=== PATIENT | female | born 1960 | race Two or more races ===

== ENCOUNTER → 2024-07-02 | Outpatient (CLI) | payer MEDICAID, SELFPAY ==
--- NOTE | 2024-07-02 13:58 | XR_ITS ---
Examination: Bilateral hands, 6 views. Technique: AP, Oblique, Lateral each hand total 6 views Date and time of exam: July 02, 2024 1446 hours INDICATIONS: Bilateral hand pain beginning 6 months ago. 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
--- NOTE | 2024-07-02 13:58 | XR_ITS ---
Examination: Cervical spine 3 views Technique one AP lateral coned AP odontoid cervical spine 3 views Exam date and time: July 02, 2024 1501 hours INDICATIONS: Neck pain 6 months. FINDINGS: Cervical levoscoliosis 12 degrees No cervical fracture. Intact odontoid Advanced degenerative disc disease C5-C6, C6-C7 IMPRESSION: Advanced degenerative disc disease C5-C6, C6-C7
--- NOTE | 2024-07-02 13:58 | XR_ITS ---
Examination: Bilateral hips, AP pelvis, 5 views Technique: AP, lateral views both hips, AP pelvis, 5 views Exam date and time: July 02, 2024 1456 hours INDICATIONS: Bilateral rib pain beginning 6 months ago worse the last month. FINDINGS: No hip or pelvic fracture No hip dislocations Minimal bilateral hip osteoarthritis IMPRESSION: Minimal bilateral hip osteoarthritis
--- NOTE | 2024-07-02 13:58 | XR_ITS ---
Examination: Lumbar spine 3 views Technique one AP lateral coned lateral lower lumbar spine 3 views Exam date and time: August 02, 2024 1523 hours INDICATIONS: Lower back pain beginning 6 months ago FINDINGS: Moderate osteopenia Lumbar levoscoliosis 15 degrees No lumbar fracture Diffuse lumbar disc narrowing, advanced L5-S1 No spondylolisthesis IMPRESSION: Diffuse lumbar degenerative disc disease, advanced L5-S1
--- NOTE | 2024-07-02 13:58 | XR_ITS ---
Examination: Foot bilateral, 6 views Technique: AP, oblique, lateral views each foot total 6 views Date and time of exam: July 02, 2024 1446 hours INDICATIONS: Bilateral foot pain beginning 6 months ago. FINDINGS: Moderate osteopenia Bilateral mild to moderate osteoarthritis first metatarsophalangeal joints Bilateral 3 to 4 mm plantar posterior bony calcaneal spurs No fracture or dislocation involving either foot IMPRESSION: Bilateral mild to moderate osteoarthritis first metatarsophalangeal joints Bilateral small plantar posterior bony calcaneal spur
== END | disposition home or self-care (01) ==
LOC: CDIM 13:49
PROVIDERS: PCP Nurse Practitioner Family; Referring Provider Nurse Practitioner Family; Visit Provider Nurse Practitioner Family
DX: M50.322 Other cervical disc degeneration at C5-C6 level (principal); M19.072 Primary osteoarthritis, left ankle and foot; M19.071 Primary osteoarthritis, right ankle and foot; M77.32 Calcaneal spur, left foot; M77.31 Calcaneal spur, right foot; M16.0 Bilateral primary osteoarthritis of hip; M19.042 Primary osteoarthritis, left hand; M19.041 Primary osteoarthritis, right hand; M51.379 Other intervertebral disc degeneration, lumbosacral region without mention of lumbar back pain or lower extremity pain
CPT/HCPCS: 72040; 72100; 73130; 73523; 73630

== ENCOUNTER 2024-09-06 20:30 | Emergency (ER) | payer MEDICAID, SELFPAY ==
[2024-09-06 20:31] VITALS: BMI 31.2
[2024-09-06 21:52] VITALS: BP 164/75; PULSE 71; RESP 18; TEMP 36.8; O2SAT 95
--- NOTE | 2024-09-06 22:19 | XR_ITS ---
Examination: PA lateral chest 2 views FINDINGS: Upright PA and lateral chest 2 views Standing time: September 06, 2024 dictated the INDICATIONS: Cough and shortness of breath beginning a days ago. FINDINGS: Normal heart size. No pneumonia or pulmonary edema Moderate thoracic spondylosis IMPRESSION: No pneumonia or pulmonary edema
[2024-09-06 23:30] VITALS: BP 153/87; PULSE 64; RESP 15; TEMP 36.8; O2SAT 95
[2024-09-06] MEDS: AMOXICILLIN/POT CLAV 875 TABLET 1 TAB PO (23:45)
[2024-09-06] MEDS: DEXAMETHASONE SOD PHOS INJ 10 MG/ML VIAL PO (23:45)
--- NOTE | 2024-09-07 03:07 | PD.EDURI ---
Upper Respiratory Inf. RME/HPI General Chief Complaint: Flu Like Symptoms Stated Complaint: FEVER, COUGH X 1 WEEK Time Seen by Provider: 09/06/24 22:18 Arrival date/time: 09/06/24 20:30 64F with history of HTN presents to ED with 2 weeks of cough and nasal congestion. Patient denies CP and SOB. Limitations: no limitations Related Data Previous Rx's ?Medication ?Instructions ?Recorded ciprofloxacin HCl 500 mg tablet 500 mg PO BID #20 tabs 05/12/22 (Cipro) metronidazole 500 mg tablet 500 mg PO TID #21 tabs 05/12/22 phenazopyridine 200 mg tablet 200 mg PO TID PRN pain #6 tabs 04/29/23 (Pyridium) ibuprofen 600 mg tablet 600 mg PO Q6H #30 tabs 01/09/24 amoxicillin 875 mg-potassium 1 tab PO BID 7 days #14 tabs 09/06/24 clavulanate 125 mg tablet Allergies Allergy/AdvReac Type Severity Reaction Status Date / Time peanut Allergy Severe RESPIRATORY Verified 09/28/22 22:28 DISTRESS [place] Seed Allergy Severe SWELLING Uncoded 09/28/22 22:28 Poppy Seed Allergy Severe SWELLING Uncoded 09/28/22 22:28 Potato Allergy Severe RESPIRATORY Uncoded 09/28/22 22:28 DISTRESS Sesame Seed Allergy Severe SWELLING Uncoded 09/28/22 22:28 Review of Systems Review of Systems Systems Reviewed: All systems reviewed, normal except as documented Constitutional Constitutional: Reports system reviewed and no additional complaints, except as documented, Denies fever(s) and Denies headache(s) ENT Ears, Nose, Mouth, and Throat: Reports as per HPI, Denies disequilibrium, Denies headache(s) and Reports nasal congestion Cardiovascular Cardiovascular: Reports system reviewed and no additional complaints, except as documented, Denies chest pain and Denies dyspnea Respiratory Respiratory: Reports system reviewed and no additional complaints, except as documented, Reports as per HPI, Reports cough and Denies dyspnea Gastrointestinal Gastrointestinal: Reports system reviewed and no additional complaints, except as documented, Denies abdominal pain, Denies nausea and Denies vomiting Neurologic Neurologic: Reports system reviewed and no additional complaints, except as documented, Denies confusion, Denies disequilibrium and Denies headache(s) Psychiatric Psychiatric: Denies confusion Past Medical History Past Medical History CARDIAC: Positive Hypercholesterolemia and Hypertension; Negative Cardiac Disorders or Congestive Heart Failure RESPIRATORY: Negative Chronic Obstructive Pulmonary Disease (COPD) or Asthma GENITOURINARY: Negative Renal Disease ENDOCRINE: Negative Endocrine Disorders, Diabetes Mellitus Type 1 or Diabetes Mellitus Type 2 HEMATOLOGIC: Negative Sickle Cell Disease Social History SMOKING STATUS: Never smoker ED Exam General Limitations: Present no limitations General appearance: Present alert and in no apparent distress Head Head exam: Present atraumatic Eye Eye exam: Present normal appearance, PERRL and EOMI ENT ENT exam: Present normal oropharynx and mucous membranes moist Expanded ENT Exam Nose exam: Present sinus tenderness Neck Neck exam: Present normal inspection, full ROM and trachea midline Chest Chest inspection: Present normal inspection and symmetric chest wall rise Respiratory Respiratory exam: Present normal lung sounds bilaterally Cardiovascular Cardiovascular exam: Present regular rate, normal rhythm and normal heart sounds Abdominal Exam Abdominal exam: Present soft and normal bowel sounds Extremities Exam Extremities exam: Present normal inspection and full ROM Back Exam Back exam: Present normal inspection and full ROM Neurological Exam Neurological exam: Present alert, oriented X3 and CN II-XII intact Psychiatric Psychiatric exam: Present normal affect and normal mood Skin Skin exam: Present warm, dry, intact and normal color Course Quality Measures none Orders Category Date Time Status Bedside COVID-19 Antigen Test NOW Care 09/06/24 21:12 Completed Bedside Influenza A&B Antigen Test NOW Care 09/06/24 21:12 Completed XR chest 2V Stat Exams 09/06/24 22:19 Completed Amoxicillin/Pot Clav 875 [Augmentin 875] Med 09/06/24 23:31 Discontinued 1 tab PO X1 ONE Dexamethasone Inj [Decadron Inj] Med 09/06/24 23:31 Discontinued 10 mg PO X1 ONE Vital Signs Vital signs: Vital Signs Temperature 98.2 F 09/06/24 21:52 Pulse Rate 71 09/06/24 21:52 Respiratory Rate 18 09/06/24 21:52 Blood Pressure 164/75 H 09/06/24 21:52 Pulse Oximetry (%) 95 09/06/24 21:52 Oxygen Delivery Method Room Air 09/06/24 21:52 O2 at 95% on RA and WNLs Upper Respiratory Infection MDM Narrative MDM Narrative:: 64F with history of HTN presents to ED with 2 weeks of cough and nasal congestion. Patient denies CP and SOB. Physical exam reveals sinus tenderness, but otherwise clear ENT and lungs. Normal WOB. Patient is afebrile, calm, and alert. Swabs neg. CXR normal. Likely sinusitis. Patient data External records reviewed:: [facility] previous records Clinical information provided by:: patient Social determinants that could affect healthcare access:: none Patient has the following chronic illnesses:: HTN How is presenting disease/condition affected by chronic disease/condition?: uneffected by Evaluation data The following diagnostics were reviewed and interpreted by me:: lab results and radiology exam(s) Lab and/or radiology exams considered but not ordered:: ordered Interpretation Summary: above Medications / Prescriptions Medications or Prescriptions considered but not ordered:: ordered Medication administrations:: Medication Administration History Discontinued Medications Amoxicillin/Clavulanate Potassium (Amoxicillin/Pot Clav 875 Tablet) 1 tab PO X1 ONE Stop: 09/06/24 23:32 Last Admin: 09/06/24 23:45 Dose: 1 tab Documented By: CARRIE Dexamethasone Sodium Phosphate (Dexamethasone Sod Phos Inj 10 Mg/Ml Vial) 10 mg PO X1 ONE Stop: 09/06/24 23:32 Last Admin: 09/06/24 23:45 Dose: 10 mg Documented By: CARRIE above Consultations Consultation(s) initiated? (list below): No Diagnosis Upper Respiratory Differential Diagnosis: upper respiratory infection, croup, otitis media, sinusitis, viral infection, bronchitis, influenza and pharyngitis Most likely diagnosis given after review of the tests above:: sinusitis Admission Indicated Admission indicated?: not indicated Admission Request Was there a request for admission?: No Disposition Plan Disposition Plan: Discharge Discharge Attestation Discharge Attestation: The patient and all family members were given an opportunity to ask questions and understood the discharge instructions. Discharge instructions specifically effects, indications for sooner follow up or return to the emergency department, and the expected course of current diagnosis. Patient condition: Stable Discharge Plan Plan Patient Disposition: HOME (Self Care) Disposition Comment: Stable Prescriptions/Referrals Prescriptions/Med Rec: New amoxicillin-pot clavulanate 875-125 mg tablet 1 tab PO BID 7 Days Qty: 14 0RF No Action metronidazole 500 mg tablet 500 mg PO TID Qty: 21 0RF ciprofloxacin HCl [Cipro] 500 mg tablet 500 mg PO BID Qty: 20 0RF phenazopyridine [Pyridium] 200 mg tablet 200 mg PO TID PRN (Reason: pain) Qty: 6 0RF ibuprofen 600 mg tablet 600 mg PO Q6H Qty: 30 0RF Referrals: Olga Causey MD [Primary Care Provider] - In 1 week Problem List Clinical Impression: Sinusitis Patient/Caregiver Discharge Instructions Education Materials: Causes of Sinusitis Additional Instructions: Please follow-up with PCP within 24-48 hours and return immediately if symptoms worsen. Ibuprofen/Tylenol can be used simultaneously for greater fever/pain control. Benadryl is good for cough, congestion, and sleep. 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 Wyatt
== END 2024-09-06 23:48 | disposition home or self-care (01) ==
PROVIDERS: Emergency Provider Emergency Medicine; PCP Obstetrics & Gynecology
DX: J32.9 Chronic sinusitis, unspecified (principal); R05.9 Cough, unspecified; R06.02 Shortness of breath
CPT/HCPCS: 71046; 87400; 87811; 99283; J1100; A9270

== ENCOUNTER → 2024-09-07 | Outpatient (CLI) | payer MEDICAID, SELFPAY ==
--- NOTE | 2024-09-07 08:30 | XR_ITS ---
Examination: MRI cervical spine without intravenous contrast Date and time of exam: September 07, 2024 0841 hours INDICATIONS: Neck pain radiating to the shoulders numbness in the arms one year Technique: Multiple axial and sagittal sections of the cervical spine to been obtained. T2 weighted sagittal sections, TR 3, 270, TE 117 T1-weighted sagittal sections, TR 500, TE 11 T1-weighted axial sections, TR 607, TE 12, axial sections TR 18, TE 27 and T2 weighted transverse sections, TR 3920, TE 122. Findings: Adequate alignment cervical vertebral bodies. No cervical fracture. Advanced disc narrowing C5-C6, C6-C7 Diffuse cervical disc desiccation No localized enlargement cervical cord C2-C3 no disc protrusion C3-C4 5 mm left paracentral subarticular disc with advanced left neural foraminal stenosis C4-C5 moderate left neural foraminal stenosis C5-C6 severe spinal stenosis, 4 mm central subarticular osteophyte disc complex indenting the ventral margin cervical cord with advanced bilateral neural foraminal stenosis C6-C7 4 mm central disc bulge indenting the ventral margin cervical cord with moderate bilateral neural foraminal stenosis C7-T1 no disc protrusion IMPRESSION: C3-C4 5 mm left paracentral subarticular disc with advanced left neural foraminal stenosis C4-C5 moderate left neural foraminal stenosis C5-C6 severe overall spinal stenosis including advanced bilateral neural foraminal stenosis C6-C7 moderate bilateral neural foraminal stenosis
== END | disposition home or self-care (01) ==
LOC: SMRI 08:17
PROVIDERS: PCP Obstetrics & Gynecology; Referring Provider Nurse Practitioner Family; Visit Provider Nurse Practitioner Family
DX: M48.02 Spinal stenosis, cervical region (principal)
CPT/HCPCS: 72141

== ENCOUNTER → 2024-09-11 | Outpatient (CLI) | payer MEDICAID, SELFPAY ==
--- NOTE | 2024-09-11 12:00 | XR_ITS ---
Examination: Bone densitometry Date and time of exam:September 11, 2024 1222 hours INDICATIONS: Hysterectomy age 38 postmenopausal rib fractures, family history, mother osteoporosis Technique: Lumbar spine and hip total bone mineralization values of an calculated. Peak reference and age match control results have been displayed. Findings: Lumbar spine total bone mineralization is0.807 gm/cm2. This is 2.2 standard deviations below peak reference. This is 0.6 standard deviations below age-matched controls. Hip total bone mineralization is 0.871 gm/cm2 This is 0.7 standard deviations below peak reference. This is 0.3 standard deviations above age-matched controls Impression: There is osteopenia based on lumbar spine measurements. There is osteopenia based on hip measurements
== END | disposition home or self-care (01) ==
LOC: CDIM 11:57
PROVIDERS: PCP Obstetrics & Gynecology; Referring Provider Nurse Practitioner Family; Visit Provider Nurse Practitioner Family
DX: M85.89 Other specified disorders of bone density and structure, multiple sites (principal)
CPT/HCPCS: 77080

== ENCOUNTER → 2024-11-06 | Outpatient (CLI) | payer MEDICAID, SELFPAY ==
--- NOTE | 2024-11-06 07:00 | XR_ITS ---
Examination: MRI left hip without intravenous contrast. Date and time of exam: November 06, 2024 0723 hours INDICATIONS: Left hip pain one year worse the last 3 months joint clicking Technique: Multiple MRI images of the left hip have been obtained T1 weighted coronal sections, TR 500, TE 12 Proton density coronal fat saturated images, TR 3000, TE 71 T2-weighted coronal images, 5850, TE 104 T1-weighted axial images, TR 521, TE 12 T2-weighted axial fat suppressed images, TR 5730, TE 103. Findings: Adequate marrow signal left hip No bone contusion marrow edema occult fracture or avascular necrosis Mild narrowing left hip joint Small [id number] high-resolution images do not demonstrate labral tear Contracted urinary bladder No free fluid in the pelvis IMPRESSION: No left hip bone contusion marrow edema, fracture or avascular necrosis Negative for labral tear
--- NOTE | 2024-11-06 07:00 | XR_ITS ---
Examination: MRI right hip without intravenous contrast. Date and time of exam: November 06, 2024 0728 hours INDICATIONS: Right hip pain one year worse the last 3 months Technique: Multiple MRI images of the right hip have been obtained T1 weighted coronal sections, TR 500, TE 12 Proton density coronal fat saturated images, TR 3000, TE 71 T2-weighted coronal images, 5850, TE 104 T1-weighted axial images, TR 521, TE 12 T2-weighted axial fat suppressed images, TR 5730, TE 103. Findings: Normal marrow signal right hip, no bone contusion marrow edema avascular necrosis or occult fracture No asymmetric hip effusion High-resolution small [id number] images of the right hip do not demonstrate labral tear No free fluid in the pelvis IMPRESSION: No right hip fracture or significant arthritic change Negative for labral tear
== END | disposition home or self-care (01) ==
LOC: SMRI 06:41
PROVIDERS: PCP Obstetrics & Gynecology; Referring Provider Nurse Practitioner Family; Visit Provider Nurse Practitioner Family
DX: M16.0 Bilateral primary osteoarthritis of hip (principal)
CPT/HCPCS: 73721

== ENCOUNTER → 2024-11-12 | Outpatient (CLI) | payer MEDICAID, SELFPAY ==
--- NOTE | 2024-11-12 15:20 | XR_ITS ---
Examination: Cervical spine 8 views TECHNIQUE: AP, lateral, standing lateral flexion, standing lateral extension, BROWN, PARAGUAYAN, coned AP odontoid, swimmer's lateral view total 8 views Exam dating back on November 12, 2024 1523 hours Comparison July 02, 2024 INDICATIONS: Neck pain beginning 3 months ago. FINDINGS: Advanced degenerative disc disease C5-C6, C6-C7 Adequate range of motion between flexion and extension Significant bilateral neural foraminal stenosis C5-C6, C6-C7 Intact odontoid IMPRESSION: Advanced degenerative disc disease C5-C6, C6-C7 with bilateral moderate to advanced neural foraminal stenosis at these levels
== END | disposition home or self-care (01) ==
LOC: CDIM 15:12
PROVIDERS: PCP Nurse Practitioner Family; Referring Provider Nurse Practitioner; Visit Provider Nurse Practitioner
DX: M50.322 Other cervical disc degeneration at C5-C6 level (principal); M48.02 Spinal stenosis, cervical region
CPT/HCPCS: 72052

== ENCOUNTER 2025-05-07 09:55 | Outpatient (RCR) | payer MEDICAID, SELFPAY ==
--- NOTE | 2025-05-07 10:18 | PTNOTE_ITS ---
PT OP Initial Eval Patient Information Outpatient Physical Therapy Treatment Date: 05/07/25 Visit Reasons: CERVICAL SPINE SURGERY Medical Diagnosis: stenosis of C/S with myelopathy Treatment Dx #1: neck pain Treatment Dx #2: decreased neck ROM Start of Care: 05/07/25 Date of Onset: 03/11/25 Smoking Status Smoking Status: Never smoker Initial Assessment Subjective: Pt is 64 yr old colombian speaking female s/p C4-6 ACDF in February reports L shoulder weakness, and limited shoulder and neck ROM. This limits lifting and HH chore tolerance as well as laying supine. She says the digits 2-5 are numb on the finger pads. 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 Assessment: Pt presents with neck and L shoulder pain and limited ROM. The L shoulder may be limited by capsular tightness as ROM is limited in capsular pattern. Pt requires skilled therapy and has fair rehab potential to meet goals. Short Term and Hedis Specialist Goals 1. Ind with HEP ? 2. Improved L shoulder ArOM to 100 deg FF ? 3. Improved C/S rotation to 80% of full ? 4. Pt will turn head L to R x5 with <=4/10 pain Treatment Plan 1. Manual therapy ? 2. Therex ? 3. Modalities as indicated: estim, moist heat, ice Frequency and Duration: 2x a week for 12 visits plus the evaluation Certification Dates: 05/07/25 to 2/23/26 Procedure Charges OP PT Eval Mod Complex 30 minutes: Yes
== END 2025-05-12 23:59 | disposition home or self-care (01) ==
LOC: CPTX 09:55
PROVIDERS: PCP Student in an Organized Health Care Education/Training Program; Referring Provider Student in an Organized Health Care Education/Training Program; Visit Provider Student in an Organized Health Care Education/Training Program
DX: M48.02 Spinal stenosis, cervical region (principal); M54.12 Radiculopathy, cervical region; G99.2 Myelopathy in diseases classified elsewhere
CPT/HCPCS: 97162

== ENCOUNTER 2025-05-30 10:30 | Outpatient (RCR) | payer MEDICAID, SELFPAY ==
--- NOTE | 2025-05-13 15:28 | PT.ODAYNRPT ---
PT Outpatient Daily Note OP Daily Note Outpatient Physical Therapy Treatment Date: 05/13/25 Visit Reasons: Cervical spine surgery Subjective: Pain in L scap with reaching OH with L UE Objective: See F/S for therex MHP x5' C/S MT: STM L scapula x5' Assessment: Pain limits L shoulder and C/S ROM Plan: Continue per POc Length of Time (minutes) of Treatment: 30 Minutes Procedure Charges Therapeutic Exercise 30 minutes: Yes
--- NOTE | 2025-05-15 13:04 | PT.ODAYNRPT ---
PT Outpatient Daily Note OP Daily Note Outpatient Physical Therapy Treatment Date: 05/15/25 Visit Reasons: Cervical spine surgery Subjective: Pt reports she continues to have pain in her neck and arms. Pt c/o poor movement with B UE. Objective: Please see flow sheet for ther ex list. Assessment: Performed scar mobilization pt tolerated well, no complaints of pain. Plan: Continue with POC. Length of Time (minutes) of Treatment: 30 Minutes Procedure Charges Therapeutic Exercise 30 minutes: Yes
--- NOTE | 2025-05-20 15:05 | PT.ODAYNRPT ---
PT Outpatient Daily Note OP Daily Note Outpatient Physical Therapy Treatment Date: 05/20/25 Visit Reasons: Cervical spine surgery Subjective: Pain in L scap with reaching OH with L UE Objective: See F/S for therex MT: KEVIN B UT's x7' Assessment: Pain limits L shoulder and C/S ROM especially into R sidebending Plan: Continue per POC Length of Time (minutes) of Treatment: 30 Minutes Procedure Charges Therapeutic Exercise 30 minutes: Yes
--- NOTE | 2025-05-28 13:25 | PT.ODAYNRPT ---
PT Outpatient Daily Note OP Daily Note Outpatient Physical Therapy Treatment Date: 05/28/25 Visit Reasons: Cervical spine surgery Subjective: Pain in L scap with reaching OH with L UE Objective: See F/S for therex MT: KEVIN B UT's x7' Assessment: Pain limits L shoulder and C/S ROM especially into R sidebending Plan: Continue per POC Length of Time (minutes) of Treatment: 30 Minutes Procedure Charges Therapeutic Exercise 30 minutes: Yes
--- NOTE | 2025-05-30 14:17 | PT.ODAYNRPT ---
PT Outpatient Daily Note OP Daily Note Outpatient Physical Therapy Treatment Date: 05/30/25 Visit Reasons: Cervical spine surgery Subjective: Pain in L scap with reaching OH with L UE Objective: See F/S for therex MT: KEVIN B UT's x7' Assessment: Pain limits L shoulder and C/S ROM especially into R sidebending Plan: Continue per POC Length of Time (minutes) of Treatment: 30 Minutes Procedure Charges Therapeutic Exercise 30 minutes: Yes
== END 2025-06-12 23:59 | disposition home or self-care (01) ==
LOC: CPTX 10:30
PROVIDERS: PCP Student in an Organized Health Care Education/Training Program; Referring Provider Student in an Organized Health Care Education/Training Program; Visit Provider Student in an Organized Health Care Education/Training Program
DX: Z47.89 Encounter for other orthopedic aftercare (principal); Z98.1 Arthrodesis status; M54.2 Cervicalgia; M25.512 Pain in left shoulder; R53.1 Weakness
CPT/HCPCS: 97110

== ENCOUNTER → 2025-06-12 | Outpatient (CLI) | payer MEDICAID, SELFPAY ==
--- NOTE | 2025-06-12 11:24 | XR_ITS ---
EXAMINATION: Cervical spine 3 views TECHNIQUE: AP lateral coned AP odontoid cervical spine 3 views Date and time: June 12, 2025, 11:48 p.m. INDICATIONS: Neck pain beginning 1 year ago, history cervical spine surgery. FINDINGS: Cervical fusion with disc spacers C4-C6 Advanced degenerative disc disease below the fusion site, C6-C7 No fracture Intact odontoid IMPRESSION: Cervical fusion C4-C6 with satisfactory alignment Advanced degenerative disc disease below the fusion site, C6-C7
== END | disposition home or self-care (01) ==
LOC: CDIM 11:09
PROVIDERS: PCP Nurse Practitioner Family; Referring Provider Student in an Organized Health Care Education/Training Program; Visit Provider Student in an Organized Health Care Education/Training Program
DX: M43.22 Fusion of spine, cervical region (principal); M50.33 Other cervical disc degeneration, cervicothoracic region; Z98.890 Other specified postprocedural states
CPT/HCPCS: 72040